=== PATIENT | female | born 1955 | race Caucasian/White ===

== ENCOUNTER 2021-12-26 10:03 | Emergency (ER) | payer MEDICARE ==
[~2021-12-26] VITALS: Ht 160 cm; Wt 106.6 kg
[2021-12-26] MEDS ORDERED: IBUPROFEN 600 MG TAB PO NR (10:30)
== END 2021-12-26 12:59 | disposition home or self-care (01) ==
LOC: ER 10:15
DX: M79.662 Pain in left lower leg (principal); E03.9 Hypothyroidism, unspecified
CPT/HCPCS: 93971; 99283